=== PATIENT | female | born 1955 | race Caucasian/White ===

== ENCOUNTER 2021-08-04 04:31 | Emergency (ER) | payer MEDICARE, BC ==
[2021-08-04 04:56] VITALS: BP 129/66; PULSE 98
[2021-08-04] MEDS ORDERED: Morphine 2 MG/ML SYRINGE IVPUSH ONE (05:35)
[2021-08-04] MEDS ORDERED: Diclofenac Sodium 1% Gel 100 GM Tube TOP ONE (05:41)
[2021-08-04] MEDS ORDERED: Orphenadrine 100 MG Tab.ER PO ONE (06:33)
== END 2021-08-04 08:05 | disposition home or self-care (01) ==
LOC: JD.ED 04:31
DX: M26.601 Right temporomandibular joint disorder, unspecified (principal); E78.00 Pure hypercholesterolemia, unspecified; I10 Essential (primary) hypertension; Z79.899 Other long term (current) drug therapy; Z88.5 Allergy status to narcotic agent; Z88.8 Allergy status to other drugs, medicaments and biological substances
CPT/HCPCS: 36415; 80053; 84484; 85025; 86140; 93005; 96374; 99283; A9270; J2270; 93010